=== PATIENT | female | born 1980 | race Caucasian/White ===

== ENCOUNTER 2020-02-19 15:47 | Emergency (ER) | payer BC ==
[2020-02-19] MEDS ORDERED: DIPH/PERTUSS(ACELL)/TETANUS VAC/PF 0.5 ML SYR (>=10YO) IM ONE (17:01)
[2020-02-19] MEDS ORDERED: LIDOCAINE 1% INJ-PF (10 MG/ML) 30 ML SDV INJ ONE (17:02)
--- NOTE | 2020-02-19 17:27 | ER Document Report ---
HPI - HPI Time Seen by Provider: 02/19/20 16:55 Pain Level: 1 Notes: Otherwise healthy 39-year-old female presenting to the emergency department chief complaint of concern for laceration to her left foot. Patient [place] and believes she fell on an oyster bed causing multiple lacerations to the dorsal surface of her left foot. - ROS Systems Reviewed and Negative: Yes All other systems reviewed and negative - DERM Skin Problems: Abrasion, Laceration Past Medical History - General Information source: Patient - Social History Smoking Status: Never Smoker Chew tobacco use (# tins/day): No Frequency of alcohol use: Occasional Family History: Reviewed & Not Pertinent - Medical History Medical History: Negative Surgical Hx: Negative - Immunizations Hx Diphtheria, Pertussis, Tetanus Vaccination: No - Unsure Vertical Provider Document - CONSTITUTIONAL Notes: PHYSICAL EXAMINATION: GENERAL: Well-appearing, well-nourished and in no acute distress. HEAD: Atraumatic, normocephalic. EYES: Pupils equal round extraocular movements intact, conjunctiva are normal. ENT: Nares patent NECK: Normal range of motion LUNGS: No respiratory distress Musculoskeletal: Normal range of motion NEUROLOGICAL: Normal speech, normal gait. PSYCH: Normal mood, normal affect. SKIN: 3 cm laceration over the dorsal surface of the left second toe. No active bleeding noted, approximates well. Multiple scattered abrasions over the left dorsal foot. 2 small superficial lacerations noted over the plantar surface of the right foot. Course - Re-evaluation Re-evalutation: Laceration soaked in saline and Betadine and then thoroughly irrigated. Laceration sutured under sterile technique, patient tolerated well. Patient started on oral antibiotics. Patient understands ED return precautions. - Vital Signs Vital signs: Temp Pulse Resp BP Pulse Ox 98.8 F 87 16 122/69 100 02/19/20 17:00 02/19/20 15:54 02/19/20 15:54 02/19/20 15:54 02/19/20 15:54 Procedures - Laceration/Wound Repair LEFT FOOT Wound length (cm): 3 Wound's Depth, Shape: Superficial Laceration pre-procedure: Sterile PPE donned Anesthetic type: 1% Lidocaine Wound explored: Clean Irrigated w/ Saline (mLs): 100 Wound Repaired With: Sutures Suture Size/Type: 5:0 Number of Sutures: 5 Layer Closure?: No Discharge - Discharge Clinical Impression: Laceration of foot Qualifiers: Encounter type: initial encounter Laterality: left Qualified Code(s): S91.312A - Laceration without foreign body, left foot, initial encounter Condition: Stable Disposition: HOME, SELF-CARE Additional Instructions: Laceration Care Your laceration has been sutured to keep the skin edges aligned during healing. The time of suture removal depends on the nature and location of your cut. Please follow the care instructions the doctor has outlined for you and return for further care, according to the schedule you've been given. Keep the wound and dressing clean. Unless you were told otherwise, you may shower daily, blotting the wound dry with a clean, unused towel. At other times, If the dressing gets wet or blood soaked, remove it and blot the wound dry, then reapply a new dressing. Unless you were instructed otherwise, dressings should be changed at least daily. If any signs of infection occur (swelling, redness, increasing tenderness, red streaks, tender lumps in the armpit or groin above the laceration, or fever), see the doctor immediately. Please return to the emergency department or your primary care provider in 8-10 days for suture removal. Please return earlier if you develop any signs of infection such as increased redness, swelling, foul-smelling drainage or fever. Prescriptions: Doxycycline Hyclate [Vibramycin 100 mg Tablet] 100 mg PO BID #14 tablet
[2020-02-19 19:14] VITALS: BP 120/83
== END 2020-02-19 19:12 | disposition home or self-care (01) ==
LOC: ER 15:47
DX: S91.115A Laceration without foreign body of left lesser toe(s) without damage to nail, initial encounter (principal); S91.311A Laceration without foreign body, right foot, initial encounter; S90.811A Abrasion, right foot, initial encounter; W26.9XXA Contact with unspecified sharp object(s), initial encounter; Y93.01 Activity, walking, marching and hiking; Y92.832 Beach as the place of occurrence of the external cause; Z23 Encounter for immunization
CPT/HCPCS: 90471; 90715; 99283